=== PATIENT | male | born 1965 | race Caucasian/White ===

== ENCOUNTER 2021-07-23 09:34 | Outpatient (CLI) | payer OTHER | END 2021-07-23 09:42 | disposition home or self-care (01) | LOC: LAB 09:34 | DX: E55.9 Vitamin D deficiency, unspecified (principal); E11.9 Type 2 diabetes mellitus without complications; R50.9 Fever, unspecified; E78.2 Mixed hyperlipidemia; Z12.11 Encounter for screening for malignant neoplasm of colon; E03.8 Other specified hypothyroidism; Z12.5 Encounter for screening for malignant neoplasm of prostate; N39.0 Urinary tract infection, site not specified ==

== ENCOUNTER 2022-07-30 08:16 | Outpatient (CLI) | payer OTHER | END 2022-07-30 08:25 | disposition home or self-care (01) | LOC: LAB 08:16 | DX: E11.9 Type 2 diabetes mellitus without complications (principal); E78.2 Mixed hyperlipidemia; E03.8 Other specified hypothyroidism; N39.0 Urinary tract infection, site not specified; R50.9 Fever, unspecified; E55.9 Vitamin D deficiency, unspecified; D51.3 Other dietary vitamin B12 deficiency anemia; R73.09 Other abnormal glucose; M06.9 Rheumatoid arthritis, unspecified; Z12.11 Encounter for screening for malignant neoplasm of colon ==

== ENCOUNTER 2022-08-01 12:11 | Outpatient (CLI) | payer OTHER | END 2022-08-01 12:14 | disposition home or self-care (01) | LOC: LAB 12:11 | DX: Z12.11 Encounter for screening for malignant neoplasm of colon (principal) ==

== ENCOUNTER 2022-08-30 10:11 | Outpatient (CLI) | payer OTHER | END 2022-08-30 10:21 | disposition home or self-care (01) | LOC: SONOGRAMA 10:11 | DX: R10.11 Right upper quadrant pain (principal) ==

== ENCOUNTER 2022-12-24 09:51 | Outpatient (CLI) | payer OTHER ==
[2022-12-24 10:54] LABS: URINE APPEARANCE Clear; URINE BILIRRUBIN Negative (NEGATIVE); URINE BLOOD Negative; URINE COLOR Yellow; URINE GLUCOSE Negative (NEGATIVE); URINE LEUKOCYTE Negative; URINE NITRATE Negative; URINE PROTEIN Negative (NEGATIVE); URINE UROBILINOGEN 0.2 E.U./dl
[2022-12-24 10:58] LABS: HEMATOCRIT 41.3 % (39.0-48.0); MEAN CELL VOLUME 89.9 fL (80.0-100.00); MEAN CORPUSCULAR HEMOGLOBIN 30.6 pg (27.00-32.0); PLATELET COUNT 258 K/uL (150-450); RED BLOOD COUNT 4.59 M/uL (4.00-6.00); RED CELL DISTRIBUTION WIDTH 13.8 % (11.5-14.5)
[2022-12-24 10:59] LABS: URINE BACTERIA 7.5 uL (0.0-1933); URINE EPITHELIAL CELLS 1.6 uL (0.0-38.8); URINE WBC 3.2 uL (0.0-23.2)
[2022-12-24 11:28] LABS: ALBUMIN 3.6 gm/dL (3.4-5.0); BILIRUBIN TOTAL 0.52 mg/dL (0.3-1.2); CALCIUM 8.8 mg/dL (8.5-10.1); CREATININE SERUM 1.02 mg/dL (0.70-1.30); GFR 75.01; GLOBULINA 3.7 G/DL (2.4-3.5); POTASSIUM 4.2 mEq/L (3.5-5.1); TOTAL PROTEIN 7.3 gm/dL (6.4-8.2)
[2022-12-24 11:32] LABS: URINE RBC 0.8 uL (0.0-20.8)
[2022-12-24 11:54] LABS: CHOL HDL RATIO 4.7 (0-5.0)
== END 2022-12-24 09:55 | disposition home or self-care (01) ==
LOC: LAB 09:51
DX: E78.01 Familial hypercholesterolemia (principal); E78.2 Mixed hyperlipidemia; N18.1 Chronic kidney disease, stage 1; E11.22 Type 2 diabetes mellitus with diabetic chronic kidney disease

== ENCOUNTER 2023-03-24 10:19 | Outpatient (CLI) | payer OTHER ==
[2023-03-24 11:16] LABS: HEMATOCRIT 42.9 % (39.0-48.0); HEMOGLOBIN 14.8 g/dL (13-16.00); MEAN CELL VOLUME 91.6 fL (80.0-100.00); MEAN CORPUSCULAR HEMOGLOBIN 31.6 pg (27.00-32.0); MEAN CORPUSCULAR HGB CONC 34.5 g/dl (32.0-36.0); PLATELET COUNT 270 K/uL (150-450); RED BLOOD COUNT 4.68 M/uL (4.00-6.00); RED CELL DISTRIBUTION WIDTH 13.4 % (11.5-14.5)
[2023-03-24 11:18] LABS: URINE APPEARANCE Clear; URINE BILIRRUBIN Negative (NEGATIVE); URINE BLOOD Negative; URINE COLOR Yellow; URINE GLUCOSE Negative (NEGATIVE); URINE LEUKOCYTE Negative; URINE NITRATE Negative; URINE PROTEIN Negative (NEGATIVE); URINE UROBILINOGEN 0.2 E.U./dl
[2023-03-24 11:22] LABS: URINE BACTERIA 8.8 uL (0.0-1933)
[2023-03-24 11:23] LABS: URINE RBC 1.8 uL (0.0-20.8); URINE WBC 0.7 uL (0.0-23.2)
[2023-03-24 12:09] LABS: ALBUMIN 3.7 gm/dL (3.4-5.0); BILIRUBIN TOTAL 0.57 mg/dL (0.3-1.2); CALCIUM 9.2 mg/dL (8.5-10.1); CHOL HDL RATIO 4.2 (0-5.0); CREATININE SERUM 1.07 mg/dL (0.70-1.30); GFR 70.98; GLOBULINA 3.6 G/DL (2.4-3.5); POTASSIUM 3.98 mEq/L (3.5-5.1); PROSTATIC SPECIFIC ANTIGEN 2.63 NG/ML (0.010-4.00); T4 TOTAL 8.35 UG/DL (4.5-12.1); TOTAL PROTEIN 7.3 gm/dL (6.4-8.2); TSH 3.01 uIU/mL (0.358-3.74)
[2023-03-24 13:47] LABS: T3 TOTAL 1.11 ng/ml (0.846-2.02); VITAMIN D3 25 HYDROXY 53.67 ng/ml (30-120)
== END 2023-03-24 10:27 | disposition home or self-care (01) ==
LOC: LAB 10:19
DX: E11.9 Type 2 diabetes mellitus without complications (principal); I10 Essential (primary) hypertension; E03.9 Hypothyroidism, unspecified; E78.2 Mixed hyperlipidemia; E55.9 Vitamin D deficiency, unspecified; N40.0 Benign prostatic hyperplasia without lower urinary tract symptoms

== ENCOUNTER 2023-03-24 11:44 | Outpatient (CLI) | payer OTHER | END 2023-03-24 11:45 | disposition home or self-care (01) | LOC: NUCLEAR 11:44 | DX: I11.9 Hypertensive heart disease without heart failure (principal) ==

== ENCOUNTER 2023-08-26 08:46 | Outpatient (CLI) | payer OTHER ==
[2023-08-26 10:04] LABS: PH,URINE 6.5 (5.0-8.0); URINE APPEARANCE Clear; URINE BILIRRUBIN Negative (NEGATIVE); URINE BLOOD Negative; URINE COLOR Yellow; URINE GLUCOSE Negative (NEGATIVE); URINE LEUKOCYTE Negative; URINE NITRATE Negative; URINE PROTEIN Negative (NEGATIVE); URINE UROBILINOGEN 0.2 E.U./dl
[2023-08-26 10:09] LABS: URINE WBC 2.1 uL (0.0-23.2)
[2023-08-26 10:12] LABS: HEMATOCRIT 41.4 % (39.0-48.0); HEMOGLOBIN 14.1 g/dL (13-16.00); MEAN CELL VOLUME 91.9 fL (80.0-100.00); MEAN CORPUSCULAR HEMOGLOBIN 31.4 pg (27.00-32.0); MEAN CORPUSCULAR HGB CONC 34.1 g/dl (32.0-36.0); PLATELET COUNT 250 K/uL (150-450); RED CELL DISTRIBUTION WIDTH 13.4 % (11.5-14.5)
[2023-08-26 10:14] LABS: CREATININE URINE RANDOM 99.4 MG/DL (30-125)
[2023-08-26 10:16] LABS: URINE BACTERIA 1.2 uL (0.0-1933); URINE EPITHELIAL CELLS 0.3 uL (0.0-38.8); URINE RBC 0.6 uL (0.0-20.8)
[2023-08-26 10:38] LABS: ALBUMIN 3.5 gm/dL (3.4-5.0); BILIRUBIN TOTAL 0.4 mg/dL (0.3-1.2); CHOL HDL RATIO 4.3 (0-5.0); CREATININE SERUM 0.98 mg/dL (0.70-1.30); GFR 78.56; GLOBULINA 3.6 G/DL (2.4-3.5); POTASSIUM 4.71 mEq/L (3.5-5.1); PROSTATIC SPECIFIC ANTIGEN 2.59 NG/ML (0.010-4.00); TOTAL PROTEIN 7.1 gm/dL (6.4-8.2)
== END 2023-08-26 08:47 | disposition home or self-care (01) ==
LOC: LAB 08:46
PROVIDERS: ATTEND General Practice
DX: E11.9 Type 2 diabetes mellitus without complications (principal); I10 Essential (primary) hypertension; E78.2 Mixed hyperlipidemia; N18.2 Chronic kidney disease, stage 2 (mild); E11.22 Type 2 diabetes mellitus with diabetic chronic kidney disease; I12.9 Hypertensive chronic kidney disease with stage 1 through stage 4 chronic kidney disease, or unspecified chronic kidney disease; N40.0 Benign prostatic hyperplasia without lower urinary tract symptoms

== ENCOUNTER → 2023-12-15 07:32 | Outpatient (CLI) | payer OTHER ==
[2023-12-15 07:57] LABS: HEMOGLOBIN 14.1 g/dL (13-16.00); MEAN CELL VOLUME 92.1 fL (80.0-100.00); MEAN CORPUSCULAR HEMOGLOBIN 31.6 pg (27.00-32.0); MEAN CORPUSCULAR HGB CONC 34.3 g/dl (32.0-36.0); PLATELET COUNT 283 K/uL (150-450); RED BLOOD COUNT 4.46 M/uL (4.00-6.00); RED CELL DISTRIBUTION WIDTH 13.8 % (11.5-14.5)
[2023-12-15 07:58] LABS: URINE APPEARANCE Clear; URINE BILIRRUBIN Negative (NEGATIVE); URINE BLOOD Negative; URINE COLOR Yellow; URINE GLUCOSE Negative (NEGATIVE); URINE KETONE Trace (NEGATIVE); URINE LEUKOCYTE Negative; URINE NITRATE Negative; URINE PROTEIN Negative (NEGATIVE); URINE UROBILINOGEN 0.2 E.U./dl
[2023-12-15 07:59] LABS: URINE EPITHELIAL CELLS 2.4 uL (0.0-38.8); URINE RBC 4.2 uL (0.0-20.8); URINE WBC 2.6 uL (0.0-23.2)
[2023-12-15 08:05] LABS: URINE BACTERIA 2.5 uL (0.0-1933)
[2023-12-15 08:57] LABS: ALBUMIN 3.8 gm/dL (3.4-5.0); BILIRUBIN TOTAL 0.56 mg/dL (0.3-1.2); CALCIUM 9.3 mg/dL (8.5-10.1); CHOL HDL RATIO 3.7 (0-5.0); CREATININE SERUM 0.98 mg/dL (0.70-1.30); GFR 78.28; GLOBULINA 3.8 G/DL (2.4-3.5); POTASSIUM 3.89 mEq/L (3.5-5.1); TOTAL PROTEIN 7.6 gm/dL (6.4-8.2)
== END | disposition home or self-care (01) ==
LOC: LAB 07:32
PROVIDERS: ATTEND General Practice
DX: E11.9 Type 2 diabetes mellitus without complications (principal); I10 Essential (primary) hypertension

== ENCOUNTER → 2023-12-27 | Emergency (ER) | payer OTHER ==
[~2023-12-27] VITALS: Ht 175.3 cm; Wt 102.1 kg
[~2023-12-27] MED LIST: AZITHROMYCIN 500 MG TABLET PO ONE; GUAIFENESIN/DEXTROMETHORPHAN 10ML BLIST.PACK PO ONE; METFORMIN HCL850 M1 PO; OSEL75CA PO; TUSNEL LIQUID178 ML PO; VALSARTAN80 MG PO
[2023-12-27 10:34] VITALS: BP 150/95; O2SAT 96
[2023-12-27 12:14] LABS: HEMATOCRIT 44.7 % (39.0-48.0); MEAN CORPUSCULAR HEMOGLOBIN 31.2 pg (27.00-32.0); MEAN CORPUSCULAR HGB CONC 33.5 g/dl (32.0-36.0); PLATELET COUNT 209 K/uL (150-450); RED CELL DISTRIBUTION WIDTH 13.6 % (11.5-14.5)
== END | disposition home or self-care (01) ==
LOC: ER 10:19
PROVIDERS: General Practice
DX: R53.81 Other malaise (principal); J10.1 Influenza due to other identified influenza virus with other respiratory manifestations; Z20.822 Contact with and (suspected) exposure to COVID-19

== ENCOUNTER 2024-10-07 14:35 | Emergency (ER) | payer OTHER ==
[~2024-10-07] VITALS: Ht 175.3 cm; Wt 88.5 kg
[~2024-10-07 14:35] MED LIST changes: -AZITHROMYCIN 500 MG TABLET PO ONE; -GUAIFENESIN/DEXTROMETHORPHAN 10ML BLIST.PACK PO ONE
[2024-10-07] MEDS ORDERED: KETOROLAC TROMETHAMINE 60 MG VIAL IM ONE (15:15)
[2024-10-07] MEDS ORDERED: NORFLEX100MG PO (15:50)
== END 2024-10-07 16:03 | disposition home or self-care (01) ==
LOC: ER 14:35
DX: S09.8XXA Other specified injuries of head, initial encounter (principal); V49.88XA Car occupant (driver) (passenger) injured in other specified transport accidents, initial encounter; Y93.89 Activity, other specified; Y92.89 Other specified places as the place of occurrence of the external cause; Y99.8 Other external cause status; M54.2 Cervicalgia; M25.569 Pain in unspecified knee; R51.9 Headache, unspecified; I10 Essential (primary) hypertension; E11.9 Type 2 diabetes mellitus without complications; Z79.84 Long term (current) use of oral hypoglycemic drugs

== ENCOUNTER → 2024-10-17 | Emergency (ER) | payer OTHER ==
[~2024-10-17] VITALS: Ht 175.3 cm; Wt 88.5 kg
[~2024-10-17] MED LIST changes: +DICLOFENAC SODI75 MG PO; +DUI500 PO; +GLIMEPIRIDE2 M1; +KETOROLAC TROMETHAMINE 60 MG VIAL IM ONE; +NORFLEX100MG PO
== END | disposition home or self-care (01) ==
LOC: ER 18:59
DX: M79.641 Pain in right hand (principal); I10 Essential (primary) hypertension; E11.9 Type 2 diabetes mellitus without complications; Z79.84 Long term (current) use of oral hypoglycemic drugs